=== PATIENT | male | born 1960 | race Caucasian/White ===

== ENCOUNTER 2023-11-17 01:58 | Emergency (ER) | payer MEDICAID ==
[~2023-11-17] VITALS: Ht 165.1 cm; Wt 68.8 kg
[2023-11-17 02:52] VITALS: O2SAT 99
[2023-11-17] MEDS ORDERED: DIPH25CA83 MT (06:15)
[2023-11-17] MEDS ORDERED: CEPH500T MT (06:15)
[2023-11-17 07:45] VITALS: BP 156/79; PULSE 98; RESP 17; TEMP 98.1
== END 2023-11-17 09:19 | disposition home or self-care (01) ==
LOC: ER 01:58
DX: H00.035 Abscess of left lower eyelid (principal); H00.034 Abscess of left upper eyelid; H00.032 Abscess of right lower eyelid; H00.031 Abscess of right upper eyelid; J30.9 Allergic rhinitis, unspecified; E11.9 Type 2 diabetes mellitus without complications; E78.00 Pure hypercholesterolemia, unspecified; I10 Essential (primary) hypertension
CPT/HCPCS: 99283